=== PATIENT | female | born 1950 | race Caucasian/White ===

== ENCOUNTER → 2018-04-24 | Outpatient (CLI) | payer MEDICARE ==
[~2018-04-24] MED LIST: ASPI-496 PO; ATOR10TA9 PO; BIOT1TAB2 PO; CHOL500015 PO; LEVO75TA5 PO; LISI-167 PO; MELA1TAB10 PO; MORP30TA3 PO; MULT-91 PO; OXYC-432 PO; OXYC5SOL8 PO; TOPI25TA8 PO; VITA150T PO; VITA400T6 PO
== END | disposition home or self-care (01) ==
LOC: CFH 15:59
PROVIDERS: ATTEND Nurse Practitioner Family
DX: E04.2 Nontoxic multinodular goiter (principal)
CPT/HCPCS: 76536